=== PATIENT | female | born 1980 | race Caucasian/White ===

== ENCOUNTER 2018-02-23 18:33 | Emergency (ER) | payer MEDICAID, OTHER ==
[~2018-02-23] VITALS: Ht 160 cm; Wt 47.3 kg
--- NOTE | 2018-02-23 18:53 | NUR ---
PT AMBULATED TO ER BED 04
[2018-02-23 18:54] VITALS: BP 125/81
--- NOTE | 2018-02-23 19:05 | NUR ---
37F BIB FAMILY, PT. C/O LEFT EAR PAIN SINCE LAST NIGHT RADIATING TO HER WISDOM TTOTH. PATIENT DESCRIBES PAIN CONSTANT, AND THROBBING. DENIES INJURY HX--DEAF RX--NONE
--- NOTE | 2018-02-23 19:11 | NUR ---
Pt report given to PETERSON. Transfer of care at this time.
[2018-02-23] MEDS ORDERED: HYDROcodone/APAP 5/325 MG 1 TAB TAB PO ONE (20:35)
[2018-02-23] MEDS ORDERED: KETOROLAC 30 MG/ML VIAL IM ONE (20:35)
--- NOTE | 2018-02-23 20:37 | NUR ---
EMERITA STOUT AT BEDSIDE
--- NOTE | 2018-02-23 21:03 | NUR ---
PT MOVED TO ER CHAIR E
[2018-02-23 21:20] VITALS: BP 110/69
--- NOTE | 2018-02-23 21:20 | NUR ---
Patient discharged with v/s stable. Written and verbal after care instructions given and explained. Patient alert, oriented and verbalized understanding of instructions. Ambulatory with steady gait. All questions addressed prior to discharge. ID band removed. Patient advised to follow up with PMD. Rx of TRAMADOL, CLINDAMYCIN AND IBUPROFEN given. Patient educated on indication of medication including possible reaction and side effects. Opportunity to ask questions provided and answered.
== END 2018-02-23 21:20 | disposition home or self-care (01) ==
LOC: MED 18:33
DX: K08.89 Other specified disorders of teeth and supporting structures (principal); H92.02 Otalgia, left ear; F17.210 Nicotine dependence, cigarettes, uncomplicated; Z88.1 Allergy status to other antibiotic agents; Z88.0 Allergy status to penicillin
CPT/HCPCS: 96372; 99283; J1885

== ENCOUNTER 2021-03-09 10:37 | Emergency (ER) | payer OTHER ==
[~2021-03-09] VITALS: Ht 160 cm; Wt 68.0 kg
[2021-03-09 10:41] VITALS: BP 124/76
--- NOTE | 2021-03-09 10:50 | NUR ---
PT AMB TO BED 12.
--- NOTE | 2021-03-09 10:56 | NUR ---
DR. NEVAREZ BEDSIDE EVALUATING PT
--- NOTE | 2021-03-09 11:00 | NUR ---
40 Y FEMALE FROM HOME WITH C/O TOOTH PAIN, LEFT CHEEK PAIN/SWELLING X YESTERDAY. PT STATED SHE WENT TO URGENT CARE YESTERDAY AND WAS GIVEN ABX, BUT THE PAIN/SWELLING GOT WORSE OVER NIGHT. SWELLING NOTED OF L CHEECK AND ABCESS NOTED INSIDE PT L SIDE OF CHEEK. PT STATED THE PAIN IS NOW RADIATING TO HER L EAR AND DOWN HER NECK REGION. PT IS STILL ABLE TO EAT/DRINK, BUT STATED IT HAS BEEN HARDER THAN NORMAL. PMH: DENTAL ISSUES (UNKNOWN) ALLERGIES: PENICILLINS, LEVOFLOXACIN
[2021-03-09] MEDS ORDERED: CLINDAMYCIN 600 MG in DEXTROSE 5% 50 ML IV ONE (11:10)
[2021-03-09] MEDS ORDERED: NACL 0.9% 1,000 ML IV ONE (11:10)
[2021-03-09] MEDS ORDERED: DEXAMETHASONE 10 MG/ML VIAL IVP ONE (11:10)
[2021-03-09] MEDS ORDERED: CLINDAMYCIN 600 MG/4 ML VIAL ONE (11:14)
--- NOTE | 2021-03-09 11:35 | NUR ---
BLOOD WORK COLLECTED AND HANDED TO CLAIMS ADJUDICATOR CONCEPCION KUMAR
[2021-03-09] MEDS ORDERED: ONDANSETRON 4 MG/2 ML VIAL IVP ONE (11:50)
[2021-03-09] MEDS ORDERED: MORPHINE SULFATE 4 MG/ML SYR IVP ONE (11:50)
[2021-03-09 11:59] LABS: BASOPHILS % (AUTO) 0.1 % (0.0-2.0); EOSINOPHILS % (AUTO) 0.2 % (0.0-4.0); HEMATOCRIT 38.5 % (36-48); HEMOGLOBIN 12.9 g/dL (12.0-16.0); LYMPHOCYTES # (AUTO) 0.2 K/uL (2.5-16.5); LYMPHOCYTES % (AUTO) 3.6 % (20.5-51.1); MEAN CORPUSCULAR HEMOGLOBIN 31 pg (27-31); MEAN CORPUSCULAR HGB CONC 34 g/dL (33-37); MEAN CORPUSCULAR VOLUME 91.5 fL (80-94); MONOCYTES # (AUTO) 0.5 K/uL (0.8-1.0); MONOCYTES % (AUTO) 8.8 % (1.7-9.3); NEUTROPHILS # (AUTO) 5.2 K/uL (1.8-7.7); NEUTROPHILS % (AUTO) 87.3 % (42.2-75.2); PLATELET COUNT (AUTO) 215 K/uL (140-450); RED BLOOD CELL COUNT(AUTO) 4.21 MIL/uL (4.20-5.40)
[2021-03-09 12:28] LABS: ALBUMIN 3.6 g/dL (3.4-5.0); ANION GAP 9.1 (8-16); CREATININE 0.7 mg/dL (0.6-1.3); POTASSIUM 4.1 mmol/L (3.5-5.1); TOTAL BILIRUBIN 0.4 mg/dL (0.0-1.0)
--- NOTE | 2021-03-09 12:35 | NUR ---
22G IV ESTABLISHED IN L HAND.
--- NOTE | 2021-03-09 12:46 | NUR ---
PT TAKEN TO CT VIA RKETAN.
[2021-03-09] MEDS ORDERED: CLIN300C2 PO (12:50)
--- NOTE | 2021-03-09 12:55 | NUR ---
PT TAKEN TO ER BED 12 VIA TACOS.
--- NOTE | 2021-03-09 13:15 | NUR ---
Patient appears to be resting comfortably in bed. Vital Signs within normal limits. Respirations even and unlabored.
[2021-03-09 14:14] VITALS: BP 124/63
--- NOTE | 2021-03-09 14:14 | NUR ---
Patient discharged with v/s stable. Written and verbal after care instructions given and explained. Patient alert, oriented and verbalized understanding of instructions. Ambulatory with steady gait. All questions addressed prior to discharge. ID band removed. Patient advised to follow up with PMD. Rx of CLEOCIN given. Patient educated on indication of medication including possible reaction and side effects. Opportunity to ask questions provided and answered.
== END 2021-03-09 14:14 | disposition home or self-care (01) ==
LOC: MED 10:37
DX: K02.9 Dental caries, unspecified (principal); H91.90 Unspecified hearing loss, unspecified ear; Z88.0 Allergy status to penicillin; Z88.1 Allergy status to other antibiotic agents; Z79.899 Other long term (current) drug therapy
CPT/HCPCS: 36415; 70486; 80053; 81025; 85025; 96365; 96375; 99284; J1100; J2270; J2405; J3490; J7030